=== PATIENT | male | born 1965 | race Caucasian/White ===

== ENCOUNTER 2017-08-08 15:25 | Emergency (ER) | payer SELFPAY ==
--- NOTE | 2017-08-08 15:56 | PHYS DOC ---
Past History Laceration Repair Lac Repair Indication: [] Procedure: The patient was placed in the appropriate position and anesthesia around the [LAC WAS/WERE] [ANESTHESIA]. The area was then [CLEANSED/DEBRIDED]. The laceration was [LAC CLOSURE]. [ADDITIONAL LACS] The wound area was then dressed with [WOUND COVERING]. Total repaired wound length: [TOTAL REPAIR LENGTH]. Other Items: [OTHER ITEMS] The patient tolerated the procedure [TOLERATED]. Complications: [COMPLICATIONS]. Adult General Chief Complaint Chief Complaint: lower extremity laceration [facility] HPI 52-year-old male patient states he was cutting a piece of plastic and the knife jammed and hit the lateral side of right knee. Patient denies other injuries of laceration of his knee without pain. Last tetanus shot is unknown. Review of Systems Review of Systems Constitutional: Denies fever or chills [] Eyes: Denies change in visual acuity, redness, or eye pain [] HENT: Denies nasal congestion or sore throat [] Respiratory: Denies cough or shortness of breath [] Cardiovascular: No additional information not addressed in HPI [] GI: Denies abdominal pain, nausea, vomiting, bloody stools or diarrhea [] : Denies dysuria or hematuria [] Musculoskeletal: Denies back pain or joint pain [] Integument: Denies rash or skin lesions, reports laceration [] Neurologic: Denies headache, focal weakness or sensory changes [] Endocrine: Denies polyuria or polydipsia [] All other systems were reviewed and found to be within normal limits, except as documented in this note. Physical Exam Physical Exam Constitutional: Well developed, well nourished, no acute distress, non-toxic appearance. [] HENT: Normocephalic, atraumatic Eyes: PERRLA, EOMI, conjunctiva normal, no discharge. [] Neck: Normal range of motion, no tenderness, supple, no stridor. [] Cardiovascular:Heart rate regular rhythm, no murmur [] Lungs & Thorax: Bilateral breath sounds clear to auscultation [] Skin: Warm, dry, no erythema, no rash, 7 cm linear laceration in lateral side of right knee with exposed fat tissue without active bleeding, no tendon and ligament injury or neurovascular deficit. [] Back: No tenderness, no CVA tenderness. [] Extremities: No tenderness, no cyanosis, no clubbing, ROM intact, no edema. [] Neurologic: Alert and oriented X 3, normal motor function, normal sensory function, no focal deficits noted. [] Psychologic: Affect normal, judgement normal, mood normal. [] EKG EKG [] Radiology/Procedures Radiology/Procedures [] Course & Med Decision Making Course & Med Decision Making Laceration of lateral side of right knee was repaired with 7 stitches of 4-0 nylon and patient tolerated treatment. Patient instructed to return to ER for removal of stitches in 14 days. Dragon Disclaimer Dragon Disclaimer This electronic medical record was generated, in whole or in part, using a voice recognition dictation system. Laceration Repair Lac Repair Indication: [Lower extremity laceration] Procedure: The patient was placed in the appropriate position and anesthesia around the [ lateral side of right knee] [with 8 ML of 1% lidocaine without a]. The laceration was [ repaired in one layer with 7 sutures of 4-0 nylon. [ ADDITIONAL LACS] The wound area was then dressed with [non adhesive dressing Total repaired wound length: [7]. Other Items: [OTHER ITEMS] The patient tolerated the procedure [TOLERATED]. Complications: [COMPLICATIONS]. Departure Departure: Impression: Primary Impression: Laceration of lower leg Disposition: HOME, SELF-CARE (At 1633) Condition: IMPROVED Referrals: ZHOU CARRENO APRN (PCP) Patient Instructions: Sutured Wound Care Additional Instructions: Return to emergency room or your primary care physician in 14 days for removal of stitches LEENA BELTRAN MD Aug 08, 2017 15:56
[2017-08-08] MEDS ORDERED: LIDOCAINE 1% Multi-Dose 20 ML VIAL. IJ ONE (16:00)
[2017-08-08 16:50] VITALS: BP 157/84
[2017-08-08] MEDS: DIPHTH,PERTUSS(ACELL),TET TOX 0.5 ML DISP.SYRIN. VAX IM ONE (16:50)
== END 2017-08-08 16:52 | disposition home or self-care (01) ==
LOC: ER 15:25
DX: S81.011A Laceration without foreign body, right knee, initial encounter (principal); W26.0XXA Contact with knife, initial encounter; Y93.89 Activity, other specified; Y99.8 Other external cause status; Y92.89 Other specified places as the place of occurrence of the external cause
CPT/HCPCS: 12002; 90471; 90715; 99283

== ENCOUNTER 2017-08-24 09:28 | Emergency (ER) | payer SELFPAY ==
[2017-08-24 09:37] VITALS: BP 124/95
--- NOTE | 2017-08-24 09:59 | ED.ADGEN ---
Past History Past Medical History: No Pertinent History Past Surgical History: No Surgical History Alcohol Use: None Drug Use: None Adult General Chief Complaint Chief Complaint suture removal HPI HPI Patient presents for suture removal from right knee. No complications. Patient cut his knee with a boxblade 2 weeks ago. [] Review of Systems Review of Systems ROS as per HPI. All other systems were reviewed and found to be within normal limits, except as documented in this note. Allergies Allergies Allergies Coded Allergies Type Severity Reaction Last Updated Verified No Known Drug Allergies 08/08/17 No Physical Exam Physical Exam Constitutional: Well developed, well nourished, no acute distress, non-toxic appearance. [] Extremities: sures intact overlying healing scar to left lateral knee. no cellulitis, [] Psychologic: Affect normal, judgement normal, mood normal. [] Current Patient Data Vital Signs Vital Signs Date Time Temp Pulse Resp B/P (MAP) Pulse Ox O2 Delivery O2 Flow Rate FiO2 08/24/17 09:37 98.0 76 16 95 Room Air EKG EKG [] Radiology/Procedures Radiology/Procedures [] Course & Med Decision Making Course & Med Decision Making Pertinent Labs and Imaging studies reviewed. (See chart for details) [Suture removed per nursing.] Final Impression Final Impression [1. Encounter for suture removal] Problems: Dragon Disclaimer Dragon Disclaimer This electronic medical record was generated, in whole or in part, using a voice recognition dictation system. RONALD VO DO August 24, 2017 09:59
== END 2017-08-24 09:45 | disposition home or self-care (01) ==
LOC: ER 09:28
DX: S81.011D Laceration without foreign body, right knee, subsequent encounter (principal); X58.XXXD Exposure to other specified factors, subsequent encounter
CPT/HCPCS: 99281